=== PATIENT | female | born 1975 | race Caucasian/White ===

== ENCOUNTER 2017-11-17 19:28 | Emergency (ER) | payer OTHER ==
[~2017-11-17] VITALS: Ht 160 cm; Wt 60.0 kg
[2017-11-17 19:31] VITALS: BP 138/79
[2017-11-17] MEDS ORDERED: TETanus/Pertussis (Acell)/Diphther VAC/PF (Tdap-Adult) 0.5ml syringe IM ONE (20:20)
== END 2017-11-17 20:51 | disposition home or self-care (01) ==
LOC: ER 19:29
DX: S61.211A Laceration without foreign body of left index finger without damage to nail, initial encounter (principal); W26.0XXA Contact with knife, initial encounter; Y93.89 Activity, other specified; Y92.090 Kitchen in other non-institutional residence as the place of occurrence of the external cause; Y99.9 Unspecified external cause status
CPT/HCPCS: 12001; 90471; 90715; 99283; A6449

== ENCOUNTER 2019-01-15 18:31 | Emergency (ER) | payer OTHER ==
[~2019-01-15] VITALS: Ht 160 cm; Wt 57.7 kg
--- NOTE | 2019-01-15 19:45 | NUR ---
AT BEDSIDE CARMELO SHARMA ASSESS PT COCCYX AREA FOR BRUSING AND DISCOMFORT. AT BEDSIDE.
--- NOTE | 2019-01-15 19:50 | NUR ---
PT TO X RAY
--- NOTE | 2019-01-15 19:58 | NUR ---
PT BACK FROM X RAY
[2019-01-15 20:36] VITALS: BP 126/78
== END 2019-01-15 20:29 | disposition home or self-care (01) ==
LOC: ER 18:32
DX: M53.3 Sacrococcygeal disorders, not elsewhere classified (principal); W22.8XXA Striking against or struck by other objects, initial encounter; Y93.89 Activity, other specified; Y92.89 Other specified places as the place of occurrence of the external cause; Y99.8 Other external cause status
CPT/HCPCS: 72220; 99283

== ENCOUNTER 2019-01-17 19:23 | Emergency (ER) | payer OTHER ==
[~2019-01-17] VITALS: Ht 160 cm; Wt 58.0 kg
[2019-01-17 20:54] VITALS: BP 140/98
== END 2019-01-17 20:55 | disposition home or self-care (01) ==
LOC: ER 19:23
DX: Z02.79 Encounter for issue of other medical certificate (principal)
CPT/HCPCS: 99281